=== PATIENT | female | born 1940 | race Two or more races ===

== ENCOUNTER 2022-12-14 15:06 | Inpatient (IN) | payer MEDICARE, BC ==
[~2022-12-14] VITALS: Ht 167.6 cm; Wt 68.1 kg
--- NOTE | 2022-12-14 15:06 | NUR ---
18 g L forearm on arrival
--- NOTE | 2022-12-14 15:06 | NUR ---
BIBA from [facility] c/c blood in stool. A/O x 2-3 per baseline
[2022-12-14] MEDS ORDERED: PANTOPRAZOLE 80 MG in IV NS 0.9% 500 ML IV ONE (15:30)
[2022-12-14] MEDS ORDERED: IV NS 0.9% 1,000 ML BAG IV ONE (15:30)
[2022-12-14] MEDS ORDERED: ONDANSETRON HCL/PF 4 MG/2 ML VIAL IVP ONE (15:30)
--- NOTE | 2022-12-14 15:32 | NUR ---
CALLED [facility] [phone] GUS WILL FAX [facility]
[2022-12-14] MEDS ORDERED: ONDANSETRON HCL/PF 4 MG/2 ML VIAL ONE (15:57)
--- NOTE | 2022-12-14 16:30 | NUR ---
BLOOD SAMPLES OBTAINED
--- NOTE | 2022-12-14 16:30 | NUR ---
URINE SAMPLE OBTAINED
[2022-12-14 16:39] LABS: CALCIUM, SERUM 7.4 mg/dL (8.5-10.1); CARBON DIOXIDE 22 mmol/L (21-32); CHLORIDE 110 mmol/L (98-107); GLUCOSE 172 mg/dL (74-106); POTASSIUM 3.9 mmol/L (3.5-5.1); SODIUM SERUM 140 mmol/L (136-145); UREA NITROGEN, BLOOD 50 mg/dL (7-18)
--- NOTE | 2022-12-14 16:44 | NUR ---
MOVE SHEET SUBMITTED.
--- NOTE | 2022-12-14 17:21 | NUR ---
COVID SWAB OBTAINED
[2022-12-14] MEDS ORDERED: CT SWABBABLE VALVE TRANS SET 1 EA INFUS.SET MC ONE (17:32)
[2022-12-14] MEDS ORDERED: IOHEXOL-300 100 ML VIAL IV ONE (17:32)
[2022-12-14] MEDS ORDERED: IV NS 0.9% 250 ML IV ONE (17:32)
[2022-12-14 18:02] LABS: BILIRUBIN,URINE NEGATIVE (NEGATIVE); COLOR,URINE YELLOW (YELLOW); LEUKOCYTE ESTERASE ,URINE 2+ (NEGATIVE); NITRITE, URINE POSITIVE (NEGATIVE); PROTEIN,URINE 1+ mg/dl (NEGATIVE); UGLUCOSE NEGATIVE (NEGATIVE); UROBILINOGEN,URINE 0.2 EU/dL (0.2)
[2022-12-14 18:27] LABS: BASOPHILS % (AUTO) 0.3 % (0.0-2.0); EOSINOPHILS % (AUTO) 0.8 % (0.0-6.0); LYMPHOCYTES # (AUTO) 0.6 K/uL (0.8-4.8); LYMPHOCYTES % (AUTO) 9.1 % (20.0-44.0); MEAN CORPUSCULAR HGB CONC 32 g/dl (31.0-36.0); MEAN CORPUSCULAR VOLUME 95 fL (82-100); MONOCYTES # (AUTO) 0.4 K/uL (0.1-1.30); MONOCYTES % (AUTO) 5.9 % (2.0-12.0); NEUTROPHILS # (AUTO) 5.8 K/uL (1.8-8.9); NEUTROPHILS % (AUTO) 83.9 % (43.0-81.0); PLATELET COUNT (AUTO) 206 K/uL (150-450); WHITE BLOOD COUNT (AUTO) 6.9 K/uL (4.3-11.0)
[2022-12-14 18:48] LABS: BACTERIA,URINE 4+ /HPF (None Seen); HYALINE CASTS, URINE Few /LPF (None Seen); SQUAMOUS EPITHELIAL CELL,UR Few /HPF (None Seen); WBC,URINE TOO NUMEROUS TO COUN /HPF (0-3)
[2022-12-14 18:58] LABS: HEMATOCRIT 19 % (33-45); HEMOGLOBIN 6.1 g/dL (11.5-14.8)
[2022-12-14] MEDS ORDERED: CEFTRIAXONE 1GM BAG (ER ONLY) 1 GM/50 ML PIGGYBACK IV ONE (19:30)
[2022-12-14 19:36] LABS: ALANINE AMINOTRANSFERASE 9 U/L (12-78); ALBUMIN 2.1 g/dL (3.4-5.0); ALKALINE PHOSPHATASE 90 U/L (46-116); ASPARTATE AMINOTRANSFERASE 10 U/L (15-37); BILIRUBIN,DIRECT 0.1 mg/dL (0.0-0.2); BILIRUBIN,TOTAL 0.3 mg/dL (0.2-1.0); TOTAL PROTEIN, SERUM 5.3 g/dL (6.4-8.2)
--- NOTE | 2022-12-14 19:42 | NUR ---
BLOOD CONSENT SIGNED BY DAUGHTER POA AND PLACED IN PT CHART
[2022-12-14] MEDS ORDERED: CEFTRIAXONE 1GM BAG (ER ONLY) 50 ML IV ONE (19:45)
[2022-12-14 21:07] LABS: BAND % (MANUAL) 3 % (0.0-5.0); LYMPHOCYTES % (MANUAL) 11 % (16-48); MONOCYTES % (MANUAL) 4 % (0-11.0); NEUTROPHILS % (MANUAL) 82 (42-76)
[2022-12-14] MEDS: PANTOPRAZOLE 40 MG VIAL IV SCH (22:00)
[2022-12-14] MEDS ORDERED: ONDANSETRON HCL/PF 4 MG/2 ML VIAL IVP PRN (22:00)
[2022-12-14] MEDS ORDERED: MAG HYDROX/AL HYDROX/SIMETH 30 ML UDC PO PRN (22:00)
[2022-12-14] MEDS ORDERED: HYDROCODONE/APAP 5/325MG TABLET PO PRN (22:00)
[2022-12-14] MEDS ORDERED: Z GUARD REMEDY 4 OZ OINT TP PRN (22:00)
[2022-12-14] MEDS ORDERED: TEMAZEPAM 15 MG CAPSULE PO PRN (22:00)
[2022-12-14] MEDS ORDERED: MAGNESIUM HYDROXIDE 30 ML UDC PO PRN (22:00)
--- NOTE | 2022-12-14 22:15 | NUR ---
BLOOD TRANSFUSION INITIATED AT 120ML/HR. PRETRANSFUSION V/S WNL AND BLOOD VERIFIED BY TWO RNS PRIOR TO ADMIN.
--- NOTE | 2022-12-14 22:30 | NUR ---
NO S/S TRANSFUSION RX, TOLERATING TRANSFUSION WELL. RATE INCREASED TO 160ML/HR.
--- NOTE | 2022-12-14 22:35 | NUR ---
US TECH AT PT'S BEDSIDE
--- NOTE | 2022-12-14 22:40 | NUR ---
REPORT GIVEN TO PERRY
--- NOTE | 2022-12-14 23:33 | NUR ---
PT TRANSFERRING TO 325-1 VIA ACLS PROTOCOL VSS. ALL BELONGINGS WITH PT.
--- NOTE | 2022-12-14 23:40 | NUR ---
SHIP MANAGER ADMITTING NOTES RECEIVED PATIENT AWAKE, A/OX1-2, PATIENT HAVE EPISODES OF CONFUSION AND FORGETFULNESS. PATIENT IS BREATHING EVENLY AND UNLABORED ON ROOM AIR. NO SIGNS OF DISTRESS NOTED. PATIENT DENIES ANY PAIN AND DISCOMFORT AT THE MOMENT. PATIENT IS ON TELE MONITOR. SKIN ASSESSMENT IS DONE. BOWEL SOUND IS ACTIVE IN ALL QUADRANTS. PATIENT HAVE IV ACCESS ON LEFT AND RIGHT ARM IV SITE NOTED TO BE PATENT AND INTACT. PATIENT HAVE AN ONGOING BLOOD TRANSFUSION FROM ER CONSENT IS SIGNED BY DAUGHTER EVAN. PATIENT HAVE NO SIGNS OF ANY ADVERSE REACTION WITH THE TRANSFUSION. PATIENT IS TOLERATING WELL. PATIENT IS HAVING PROTONICS IV INFUSING @52ML/HR. ALL BELONGINGS ARE ACCOUNTED FOR. PATIENT IS ORIENTED TO THE ROOM AND HOW TO USE THE CALL LIGHT WHEN HELP IS NEEDED. SAFETY MEASURES ARE IN PLACED; BED LOCKED AND IN LOWEST POSITION, SIDE RAILS UP X3, CALL LIGHT AND BED SIDE TABLE IS WITHIN PATIENT REACH.
[2022-12-15] VITALS (22 sets, daily range): BP systolic 81–125; BP diastolic 45–81
--- NOTE | 2022-12-15 00:50 | NUR ---
RN NOTES FIRST BAG OF PRBC IS GIVEN. LAST VITAL SIGN CHECK IS; BP 106/66, HR 75, TEMP. 97.7, RESPIRATION 18, O2 SATURATION 97% ON ROOM AIR.
--- NOTE | 2022-12-15 01:16 | NUR ---
RN NOTES PATIENT STARTED ON 2ND BAG OF PRBC AT THIS TIME. PATIENT DO NOT HAVE TRANSFUSION REACTION, NO SOB, NO FEVER, NO CHILLS, NO BACK PAIN, NO HIVES NOTED. VITAL SIGNS CHECKED; BP 114/50, HR 74, O2 SATURATION 99% ROOM AIR, HR 17, TEMP 97.6.
--- NOTE | 2022-12-15 01:34 | NUR ---
RN NOTES REASSESSED PATIENT. PATIENT DO NOT HAVE TRANSFUSION REACTION, NO SOB, NO FEVER, NO CHILLS, NO BACK PAIN, NO HIVES NOTED. VITAL SIGNS BP 94/50, HR 78, RESPIRATIONS 19, TEMP 97.8, O2 SATURATION 98% ON ROOM AIR.
--- NOTE | 2022-12-15 04:55 | NUR ---
RN NOTES PATIENT IS DONE TRANSFUSING THE 2ND BAG OF PRBC. PATIENT TOLERATED WELL, NO SIGNS OF TRANSFUSION REACTION. NO COMPLAINS OF DIZZINESS, BACK PAIN, NO FEVER, NO CHILLS NOTED. VITAL SIGNS TAKEN; BP 113/56, HR 70, O2 SATURATION 99% ROOM AIR, RESPIRATION 18, TEMP 97.6.
--- NOTE | 2022-12-15 07:10 | NUR ---
RN CLOSING NOTES PATIENT IN BED AWAKE, A/OX 1-2, ABLE TO MAKE NEEDS KNOWN, EPISODES OF CONFUSION AND FORGETFULNESS, NOT IN DISTRESS, BREATHING EVENLY, NO SOB, ON TELE MONITOR SINUS RHYTHM, IV SITE ON LEFT HAND SALINE LOCK PATENT, INTACT FLUSHING WELL, RIGHT HAND IV SITE NS INFUSING 75ML/HR PATENT INFUSING WELL. ON ROOM AIR TOLERATING WELL. ALL DUE MEDICATIONS GIVEN, ALL NEEDS ARE MET. SAFETY MEASURES IN PLACED; BED LOCKED AND IN LOWEST POSITION, CALL LIGHT AND BEDSIDE TABLE WITHIN PATIENTS REACH. WILL ENDORSE TO NEXT SHIFT FOR CONTINUITY OF CARE.
--- NOTE | 2022-12-15 07:56 | NUR ---
HYDRAULIC RUBBISH COMPACTOR MECHANIC OPENING NOTES: RECEIVED PATIENT AWAKE,RESTING IN BED, A/OX 1-2, ABLE TO MAKE NEEDS KNOWN, EPISODES OF CONFUSION AND FORGETFULNESS. ON RA WITH NO S/S OF SOB. TELE MONITOR READS SR, HR= 75. IV ACCESS ON L HAND #20 AND R HAND #20, BOTH SALINE LOCK, PATENT AND INTACT. IV FLUID ON PAUSE AT THE MOMENT PER PT REQUEST. SAFETY MEASURES IN PLACED; BED LOCKED AND IN LOWEST POSITION, CALL LIGHT AND TABLE WITHIN PATIENTS REACH, WILL CONT WITH PLAN OF CARE DURING SHIFT.
[2022-12-15] MEDS ORDERED: MAGN400O6 PO (08:14)
[2022-12-15] MEDS ORDERED: GABA-532 PO (08:14)
[2022-12-15] MEDS ORDERED: ACET-868 PO (08:14)
[2022-12-15] MEDS ORDERED: ALEN70TA80 PO (08:14)
[2022-12-15] MEDS ORDERED: ACET-2605 PO (08:14)
[2022-12-15] MEDS ORDERED: NA P133E RC (08:14)
[2022-12-15] MEDS ORDERED: NAPR-1009 PO (08:14)
[2022-12-15] MEDS: PANTOPRAZOLE 40 MG VIAL IV SCH ×2 (09:08→21:17)
--- NOTE | 2022-12-15 09:30 | NUR ---
RN NOTES; GAS PUMPING STATION HELPER HEARD BED ALARM, WENT TO PT'S ROOM, WITNESSED PT TRYING TO GET OUT OF BED. GAS PUMPING STATION HELPER ASSISTED PT WITH LANDING ON LEFT BUTTOCKS. RN CAME TO PT'S ROOM, ASSESSED PT FOR REDNESS, SWELLING, AND PAIN ON LEFT BUTTOCKS, NO ISSUES IDENTIFIED. PT REORIENTED TO UNIT AND STAFF, ADVISED TO USE CALL LIGHT IF PT NEEDS TO USE BATHROOM OR AMBULATE, PT VERBALIZED UNDERSTANDING. FALL PRECAUTIONS REINFORCED, BED LOCKED AT LOWEST POSITION, ALARM ON, SIDERAILS UP X4, CALL LIGHT AND TABLE WITHIN EASY REACH. PT ROOM IS NEAR NURSING STATION, RN STATIONED INSIDE/NEAR PT'S ROOM FOR CLOSE MONITORING, WILL CONT TO REASSESS EVERY 2 HOURS, MADE SCUBA DIVING INSTRUCTOR AWARE. INCIDENT REPORT FILLED OUT.
[2022-12-15 11:05] LABS: BASOPHILS % (AUTO) 0.5 % (0.0-2.0); EOSINOPHILS % (AUTO) 1.4 % (0.0-6.0); HEMATOCRIT 22 % (33-45); HEMOGLOBIN 7.5 g/dL (11.5-14.8); LYMPHOCYTES # (AUTO) 0.8 K/uL (0.8-4.8); LYMPHOCYTES % (AUTO) 16.8 % (20.0-44.0); MEAN CORPUSCULAR HGB CONC 34 g/dl (31.0-36.0); MEAN CORPUSCULAR VOLUME 89 fL (82-100); MONOCYTES # (AUTO) 0.3 K/uL (0.1-1.30); MONOCYTES % (AUTO) 6.3 % (2.0-12.0); NEUTROPHILS # (AUTO) 3.5 K/uL (1.8-8.9); PLATELET COUNT (AUTO) 198 K/uL (150-450); RED BLOOD CELL COUNT(AUTO) 2.46 MIL/uL (4.0-5.2); WHITE BLOOD COUNT (AUTO) 4.6 K/uL (4.3-11.0)
[2022-12-15 11:19] LABS: CREATININE 0.7 mg/dL (0.6-1.3); PHOSPHORUS 2.4 mg/dL (2.5-4.9); POTASSIUM 3.7 mmol/L (3.5-5.1)
[2022-12-15 11:31] LABS: THYROID STIMULATING HORMONE 1.279 uIU/mL (0.358-3.74)
[2022-12-15 11:35] LABS: FERRITIN 63 ng/mL (8-388)
[2022-12-15 11:40] LABS: IRON, SERUM 87 ug/dl (50-175); TOTAL IRON BINDING CAPACITY 176 ug/dl (250-450)
[2022-12-15] MEDS: ACETAMINOPHEN 325 MG TABLET PO PRN ×2 (11:55→11:59)
--- NOTE | 2022-12-15 15:30 | NUR ---
RN NOTES; PT HAD LARGE AMOUNT OF BLACK TARRY STOOL, SAMPLE COLLECTED, MADE SUPPORT DIRECTOR AND HOSPITALIST AWARE, STAT CBC ORDERED; BOLUS IV FLUIDS ORDERED, WILL CONT TO MONITOR AND REASSESS VS
[2022-12-15] MEDS: K PHOS NEUTRAL 250 MG TABLET PO ONE ×2 (16:00→16:10)
--- NOTE | 2022-12-15 16:00 | NUR ---
RN NOTES: PT REFUSED KPHOS TABS, RN EXPLAINED RATIONALE OF MED, PT STILL REFUSED, DISCARDED PER UNIT PROTOCOL
[2022-12-15] MEDS ORDERED: IV NS 0.9% 500 ML BAG IV ONE (16:30)
[2022-12-15 16:59] LABS: BASOPHILS # (AUTO) 0.1 K/uL (0.0-0.2); EOSINOPHILS % (AUTO) 0.7 % (0.0-6.0); NEUTROPHILS # (AUTO) 6.6 K/uL (1.8-8.9); WHITE BLOOD COUNT (AUTO) 8.4 K/uL (4.3-11.0)
[2022-12-15 17:11] LABS: OCCULT BLOOD STOOL POSITIVE (NEGATIVE)
[2022-12-15 17:14] LABS: BASOPHILS % (AUTO) 0.9 % (0.0-2.0); LYMPHOCYTES # (AUTO) 1.2 K/uL (0.8-4.8); LYMPHOCYTES % (AUTO) 14.6 % (20.0-44.0); MEAN CORPUSCULAR HGB CONC 34 g/dl (31.0-36.0); MEAN CORPUSCULAR VOLUME 91 fL (82-100); MONOCYTES # (AUTO) 0.4 K/uL (0.1-1.30); MONOCYTES % (AUTO) 5.1 % (2.0-12.0); NEUTROPHILS % (AUTO) 78.7 % (43.0-81.0); PLATELET COUNT (AUTO) 300 K/uL (150-450); RED BLOOD CELL COUNT(AUTO) 2.23 MIL/uL (4.0-5.2)
[2022-12-15 17:18] LABS: HEMATOCRIT 20 % (33-45); HEMOGLOBIN 6.8 g/dL (11.5-14.8)
--- NOTE | 2022-12-15 18:30 | NUR ---
RN NOTES: BLOOD TRANSFUSION STARTED, VITALS DOCUMENTED, WILL MONITOR PATIENT PER UNIT PROTOCOL
[2022-12-15 18:41] LABS: BAND % (MANUAL) 2 % (0.0-5.0); EOSINOPHILS % (MANUAL) 2 % (0-4); LYMPHOCYTES % (MANUAL) 12 % (16-48); MONOCYTES % (MANUAL) 4 % (0-11.0); NEUTROPHILS % (MANUAL) 80 (42-76)
--- NOTE | 2022-12-15 19:38 | NUR ---
FUNERAL PRE ARRANGEMENT SPECIALIST NOTES: PT TRANSFERRED TO ICU FROM MED-SURG UNIT WITH ACLS PROTOCOL, PLACED IN ROOM 257. BED SIDE REPORT RECEIVED FROM SHAKIR STALLINGS. PT AWAKE, ALERT/ORIENTED X1-2 WITH CONFUSION AND VERBALLY RESPONSIVE. ON ROOM AIR AND PT TOLERATED WELL. O2 SAT 96%. IV ACCESS ON LT FOREARM#18 G INTACT AND PATENT. NO S/S OF INFILTRATIONS. RUNNING 1 UNITS OF PRBC AT 120CC/HR. NO C/O PAIN OR DISCOMFORT. NO ACUTE DISTRESS. INCONTINENT ON BOWEL AND BLADDER. ALL SAFETY MEASURES IN PLACE. BED IN LOWEST POSITION AND LOCKED. SIDE RAILS UP X3, PLACE CALL LIGHT WITH IN REACH. WILL CONTINUE TO MONITOR
--- NOTE | 2022-12-15 20:00 | NUR ---
TROLLEY COLLECTORMEAT BUTCHER NOTES: PT TRANSFERRED TO ICU VIA GURNEY WITH ANOTHER RN. PT IS AWAKE, A/O X2. ON RA WITH NO S/S OF SOB. TELE MONITOR READS SR 78. IV ACCESS AT L AC# 20 RUNNING 1 UNIT OF PRBC. ALL SAFETY MEASURES IN PLACE, REPORT GIVEN AT BEDSIDE TO BROTH MIXER
--- NOTE | 2022-12-15 20:10 | NUR ---
RN NOTES: PT KEPT TRYING TO GET UP FROM THE BED. STILL BLOOD TRANSFUSION RUNNING. NOTIFIED DR. BUENROSTRO WITH ORDER FOR BILATERAL SOFT RESTRAINTS. WILL CONTINUE TO MONITOR
--- NOTE | 2022-12-15 20:31 | NUR ---
RN NOTES: RN CALLED DAUGHTER EVAN, GAVE UPDATES ABOUT PT CONDITION, INFORMED SHE WAS TRANSFERRED TO ICU, ROOM # 257, EVAN VERBALIZED UNDERSTANDING TO EVERYTHING DISCUSSED.
--- NOTE | 2022-12-15 22:23 | NUR ---
RN NOTES: COMPLETED FIRST UNIT OF BLOOD TRANSFUSION. NO S/S OF ADVERSE REACTIONS. SECOND UNIT OF PRBC STARTED. PT TOLERATED WELL. V/S STABLE. AFEBRILE.WILL CONTINUE TO MONITOR
[2022-12-15] MEDS: CEFTRIAXONE 1 G in IV D5W 50 ML IV SCH (22:50)
[2022-12-15] MEDS: IV NS 0.9% 1,000 ML IV PRN (22:51)
[2022-12-16] VITALS (69 sets, daily range): BP systolic 75–144; BP diastolic 40–88
--- NOTE | 2022-12-16 01:30 | NUR ---
RN NOTES: NOTED PT SUDDENLY BECAME LETHARGIC. MADE AWARE DR. BUENROSTRO. ORDER- STAT ABG AND APPLIED NON-REBREATHER MASK 15L. WILL CONTINUE TO MONITOR
--- NOTE | 2022-12-16 01:50 | NUR ---
RN NOTES: NOTIFIED DR. CASTANEDA THE ABG RESULT. ORDER TO KEEP PT WITH NASAL CANNULA. STARTED 2L/MIN VIA N/C. ALSO NOTIFIED REGARDING PT'S BP- 74/45. HR- 87. STARTED BOLUS 500CC NS. PT ALREADY HAVE BURGUNDY COLOR BOWEL MOVEMENT. ORDER- LEVOPHED AND KEEP THE MAP MORE THAN 65. ORDERS NOTED AND CARRIED OUT.
[2022-12-16] MEDS ORDERED: NOREPINEPHRINE 8MG/250ML RTU 250 ML IV ONE (01:52)
[2022-12-16] MEDS ORDERED: IV NS 0.9% 500 ML IV ONE (02:00)
[2022-12-16] MEDS ORDERED: NOREPINEPHRINE 8 MG in IV NS 0.9% 242 ML IV PRN (02:00)
--- NOTE | 2022-12-16 02:14 | NUR ---
RN NOTES: SECOND UNITS OF PRBC COMPLETED. PT AFEBRILE. NO ADVERSE REACTIONS NOTED. BP- 87/42. HR- 88. COMPLETED NS 500 ML BOLUS. ON LEVOPHED AT 0.1MCG/KG/MIN. PT TOLERATED WELL. WILL CONTINUE TO MONITOR
[2022-12-16 05:19] LABS: BASOPHILS # (AUTO) 0.1 K/uL (0.0-0.2); BASOPHILS % (AUTO) 0.6 % (0.0-2.0); EOSINOPHILS % (AUTO) 0.2 % (0.0-6.0); HEMATOCRIT 26 % (33-45); HEMOGLOBIN 8.1 g/dL (11.5-14.8); LYMPHOCYTES # (AUTO) 1.4 K/uL (0.8-4.8); LYMPHOCYTES % (AUTO) 7.1 % (20.0-44.0); MEAN CORPUSCULAR HGB CONC 31 g/dl (31.0-36.0); MEAN CORPUSCULAR VOLUME 99 fL (82-100); MONOCYTES # (AUTO) 0.8 K/uL (0.1-1.30); MONOCYTES % (AUTO) 4.2 % (2.0-12.0); NEUTROPHILS # (AUTO) 17.1 K/uL (1.8-8.9); NEUTROPHILS % (AUTO) 87.9 % (43.0-81.0); PLATELET COUNT (AUTO) 308 K/uL (150-450); RED BLOOD CELL COUNT(AUTO) 2.63 MIL/uL (4.0-5.2); WHITE BLOOD COUNT (AUTO) 19.4 K/uL (4.3-11.0)
[2022-12-16 05:38] LABS: CALCIUM, SERUM 7.4 mg/dL (8.5-10.1); CREATININE 0.9 mg/dL (0.6-1.3); POTASSIUM 4.1 mmol/L (3.5-5.1)
--- NOTE | 2022-12-16 06:40 | NUR ---
RN CLOSING NOTES: RECEIVED PT IN BED, AWAKE, ALERT/ORIENTED X1-2 WITH VERY CONFUSION AND VERBALLY RESPONSIVE. ON ROOM AIR AND PT TOLERATED WELL. O2 SAT 98%. IV ACCESS ON LT FOREARM#18G AND RAC#20G INTACT AND PATENT. NO S/S OF INFILTRATIONS. RUNNING LEVOPHED AT 0.08 MCG/KG/MIN AND NS AT 75CC/HR. S/P GIVEN 2 UNITS PRBC. NO C/O PAIN OR DISCOMFORT. NO ACUTE DISTRESS. INCONTINENT ON BOWEL AND BLADDER. ALL DUE MEDS GIVEN ORDERED. ALL SAFETY MEASURES IN PLACE. BED IN LOWEST POSITION AND LOCKED. SIDE RAILS UP X3, PLACE CALL LIGHT WITH IN REACH. WILL ENDORSE TO MORNING SHIFT NURSE.
--- NOTE | 2022-12-16 07:00 | NUR ---
RN NOTES RECEIVED PT ON BED, ALERT/ CONFUSED , TRYING TO GET OUT OF THE BED, UNCOOPERATIVE , ON 2L O2 N/C , O2 SAT WNL, ON TELE ST HR IN 110, NPO FOR EGD THIS AM , ON LEVO FOR BP SUPPORT, IVF AT 75CC/HR RUNNING , SR UP x3, BED LOCKED AND IN LOWEST POSITION, CONTINUE TO MONITOR
[2022-12-16 07:17] LABS: ABG BASE EXCESS -9.2 mmol/L; ABG OXYGEN SATURATION 98.8 % (92.0-98.5); ABG PCO2 19.4 mmHg (35.0-45.0); ABG PH 7.453 (7.350-7.450); ABG PO2 265.8 mmHg (75.0-100.0); AaDO2 427.8 mmHg; COHb 0.4 % (0.5-1.5); MetHb 0.4 % (0.0-1.5); SITE, ABG Right Brachial; VENT MODE, BG 15LPM NRB
--- NOTE | 2022-12-16 07:31 | NUR ---
WOUND CARE CONSULT: PT PRESENTS WITH RECTAL BLEEDING, SOME BLANCHABLE REDNESS TO SACRAL/BUTTOCKS AREA AND RT ELBOW SKIN TEAR, PRESENT ON ADMISSION. RECOMMENDATIONS MADE FOR SKIN PROTECTION. DISCUSSED WITH NURSING STAFF.MD IN AGREEMENT WITH PLAN OF CARE.
[2022-12-16] MEDS ORDERED: ANESTHESIA TRAY IN PYXIS 1 EA TRAY MC ONE (08:00)
[2022-12-16] MEDS: PANTOPRAZOLE 40 MG VIAL IV SCH ×2 (08:11→21:09)
--- NOTE | 2022-12-16 08:55 | NUR ---
RN NOTES PT TO OR AT THIS TIME FOR ENDOSCOPY .
--- NOTE | 2022-12-16 09:33 | NUR ---
RN NOTES PT BACK FROM OR
[2022-12-16] MEDS ORDERED: PANTOPRAZOLE 80 MG in IV NS 0.9% 500 ML IV ONE (11:00)
[2022-12-16] MEDS ORDERED: ACETAMINOPHEN ES 500 MG TABLET PO PRN (13:30)
[2022-12-16] MEDS ORDERED: MAGNESIUM HYDROXIDE 30 ML UDC PO PRN (13:30)
[2022-12-16] MEDS ORDERED: ACETAMINOPHEN 325 MG TABLET PO PRN (13:30)
[2022-12-16] MEDS ORDERED: NA PHOS,M-B/NA PHOS,DI-BA 1 EA ENEMA RC PRN (13:30)
--- NOTE | 2022-12-16 14:00 | NUR ---
RN NOTES BP STABLE, NO RECTAL BLEEDING NOTED, CONTINUE TO MONITOR
[2022-12-16] MEDS: IV NS 0.9% 1,000 ML IV PRN (14:32)
[2022-12-16] MEDS: GABAPENTIN 100 MG CAPSULE PO SCH (16:46)
--- NOTE | 2022-12-16 18:15 | NUR ---
RN NOTES PT REMAINS CONFUSED , OFF PRESSORS, NO ACTIVE BLEEDING NOTED, ON PROTONIX DRIP AT 50CC/HR , NO DISTESS NOTED, WILL ENDORSE TO BEHAVIORAL HEALTH CARE COORDINATOR NURSE FOR CONTINUITY OF CARE
--- NOTE | 2022-12-16 19:30 | NUR ---
BIOLOGY LABORATORY ASSISTANT OPENING NOTES RECEIVED PT IN BED, AWAKE, ALERT/ORIENTED X1-2 CONFUSED AND VERBALLY RESPONSIVE. ON ROOM AIR AND PT TOLERATED WELL. O2 SAT 98%. IV ACCESS ON NEGRA ML, LT FOREARM#18G AND RAC#20G INTACT AND PATENT. NO S/S OF INFILTRATIONS, RUNNING NS AT 75CC/HR. NO C/O PAIN OR DISCOMFORT. NO ACUTE DISTRESS. INCONTINENT ON BOWEL AND BLADDER. WITH B SOFT WRIST RESTRAINTS ON, CIRCULATION CHECKED Q2H, ALL SAFETY MEASURES IN PLACE. BED IN LOWEST POSITION AND LOCKED. SIDE RAILS UP X3, PLACE CALL LIGHT WITH IN REACH. WILL CONTINUE TO MONITOR THROUGHOUT THE SHIFT.
[2022-12-16] MEDS: CEFTRIAXONE 1 G in IV D5W 50 ML IV SCH (21:09)
[2022-12-17] VITALS (45 sets, daily range): BP systolic 102–162; BP diastolic 37–91
[2022-12-17] MEDS: IV NS 0.9% 1,000 ML IV PRN ×2 (02:46→22:46)
[2022-12-17 04:34] LABS: CALCIUM, SERUM 7.4 mg/dL (8.5-10.1); CREATININE 0.8 mg/dL (0.6-1.3); POTASSIUM 3.4 mmol/L (3.5-5.1)
[2022-12-17 04:53] LABS: BASOPHILS % (AUTO) 0.8 % (0.0-2.0); EOSINOPHILS % (AUTO) 2.3 % (0.0-6.0); MEAN CORPUSCULAR HGB CONC 33 g/dl (31.0-36.0); MEAN CORPUSCULAR VOLUME 95 fL (82-100); MONOCYTES # (AUTO) 0.4 K/uL (0.1-1.30); MONOCYTES % (AUTO) 7.5 % (2.0-12.0); NEUTROPHILS # (AUTO) 4.2 K/uL (1.8-8.9); NEUTROPHILS % (AUTO) 71.4 % (43.0-81.0); PLATELET COUNT (AUTO) 180 K/uL (150-450); WHITE BLOOD COUNT (AUTO) 5.8 K/uL (4.3-11.0)
[2022-12-17 04:56] LABS: RED BLOOD CELL COUNT(AUTO) 1.68 MIL/uL (4.0-5.2)
[2022-12-17 04:57] LABS: HEMATOCRIT 16 % (33-45); HEMOGLOBIN 5.3 g/dL (11.5-14.8)
--- NOTE | 2022-12-17 05:02 | NUR ---
RN NOTE CRITICAL LAB H&H 5.12/26. NOTIFIED DETECTOR CAR OPERATOR MD, AWAITING RESPONSE. CN MADE AWARE.
--- NOTE | 2022-12-17 05:15 | NUR ---
RN NOTE BIOMEDICAL EQUIPMENT TECHNICIAN TY ORDERED 1 PRBC FOR HGB <7
--- NOTE | 2022-12-17 06:40 | NUR ---
GAMEMASTER CLOSING NOTES PT REMAINS IN BED ASLEEP BUT EASILY AROUSABLE TO TOUCH AND VOICE, ALERT/ORIENTED X1-2 WITH PERIODS OF CONFUSION AND VERBALLY RESPONSIVE. ON ROOM AIR AND PT TOLERATED WELL. O2 SAT 98%. IV ACCESS ON NEGRA ML, LT FOREARM#18G AND RAC#20G INTACT AND PATENT. NO S/S OF INFILTRATIONS, RUNNING NS AT 75CC/HR. NO C/O PAIN OR DISCOMFORT. NO ACUTE DISTRESS. INCONTINENT ON BOWEL AND BLADDER. WITH B SOFT WRIST RESTRAINTS ON, CIRCULATION CHECKED Q2H, ALL DUE MEDS GIVEN, KEPT DRY AND CLEAN, ALL SAFETY MEASURES IN PLACE. BED IN LOWEST POSITION AND LOCKED. SIDE RAILS UP X3, PLACE CALL LIGHT WITH IN REACH. AWAITING BLOODBANK TO TRANSFUSE 1 PRBC, WILL ENDORSE TO AM SHIFT NURSE FOR CONTINUITY OF CARE.
--- NOTE | 2022-12-17 07:09 | NUR ---
RN NOTES RECEIVED PT ON BED, AWAKE, ALERT/ORIENTED X1-2 CONFUSED AND VERBALLY RESPONSIVE. ON ROOM O2 SAT IV ACCESS ON NEGRA ML, LT FOREARM#18G AND RAC#20G INTACT AND PATENT. NO S/S OF INFILTRATIONS, NS AT 75CC/HR RUNNING , AWAITING FOR BLOOD TRANSFUSION, NO C/O PAIN OR DISCOMFORT. NO ACUTE DISTRESS. INCONTINENT ON BOWEL AND BLADDER. WITH RENNY. SOFT WRIST RESTRAINTS ON, CIRCULATION CHECKED Q2H, ALL SAFETY MEASURES IN PLACE. BED IN LOWEST POSITION AND LOCKED. SIDE RAILS UP X3, PLACE CALL LIGHT WITH IN REACH. WILL CONTINUE TO MONITOR .
[2022-12-17] MEDS ORDERED: ALENDRONATE 70 MG TABLET PO SCH (07:30)
[2022-12-17] MEDS: POTASSIUM CL. PREMIX PERIPHER. 50 ML IV SCH ×2 (07:52→09:00)
[2022-12-17] MEDS: PANTOPRAZOLE 40 MG VIAL IV SCH ×2 (08:28→21:02)
[2022-12-17] MEDS: GABAPENTIN 100 MG CAPSULE PO SCH ×2 (08:28→16:28)
[2022-12-17 09:48] LABS: BAND % (MANUAL) 1 % (0.0-5.0); EOSINOPHILS % (MANUAL) 1 % (0-4); LYMPHOCYTES % (MANUAL) 23 % (16-48); MONOCYTES % (MANUAL) 3 % (0-11.0); NEUTROPHILS % (MANUAL) 72 (42-76)
--- NOTE | 2022-12-17 12:45 | NUR ---
RN NOTES PT TO NM AT THIS TIME , CONTINUE TO MONITOR
--- NOTE | 2022-12-17 15:00 | NUR ---
RN NOTES PT RECEIVED TWO UNITS OF PRBC , TOLERATED WELL, CONTINUE TO MONITOR
--- NOTE | 2022-12-17 18:14 | NUR ---
RN NOTES PT HAD THREE LOOSE DARK TO LIGHT BROWNISH STOOL WITH SOME BLOOD CLOTS , ON THIS SHIFT, ON RA, NO SOB NOTED, NS AT 75CC/HR RUNNING , SR UP x3, CALL LIGHT WITHIN EASY REACH, BED LOCKED AND IN LOWEST POSITION, WILL ENDORSE TO ELECTRONICS WORKER NURSE FOR CONTINUITY OF CARE .
[2022-12-17 19:50] LABS: HEMOGLOBIN 8.7 g/dL (11.5-14.8)
--- NOTE | 2022-12-17 20:00 | NUR ---
Received patient awake alert oriented x1 otherwise confused.VS stable.SR.Respiration even and unlabored.Denies pain or any discomfort.Patient with IV NS infusing to NEGRA ML site intact. Turned and repositioned.Safety precaution maintained.Call light at bedside.Continue monitoring.
[2022-12-17] MEDS: CEFTRIAXONE 1 G in IV D5W 50 ML IV SCH (21:40)
[2022-12-18] VITALS (20 sets, daily range): BP systolic 109–153; BP diastolic 55–82
--- NOTE | 2022-12-18 | NUR ---
Patient very confused trying to get out of bed.Bilateral soft wrist restraints continued.Protocol implemented.
[2022-12-18 05:22] LABS: BASOPHILS # (AUTO) 0.1 K/uL (0.0-0.2); BASOPHILS % (AUTO) 0.9 % (0.0-2.0); EOSINOPHILS % (AUTO) 4.3 % (0.0-6.0); HEMATOCRIT 23 % (33-45); HEMOGLOBIN 7.9 g/dL (11.5-14.8); LYMPHOCYTES % (AUTO) 13.6 % (20.0-44.0); MEAN CORPUSCULAR HGB CONC 34 g/dl (31.0-36.0); MEAN CORPUSCULAR VOLUME 90 fL (82-100); MONOCYTES # (AUTO) 0.4 K/uL (0.1-1.30); MONOCYTES % (AUTO) 5.9 % (2.0-12.0); NEUTROPHILS # (AUTO) 5.3 K/uL (1.8-8.9); NEUTROPHILS % (AUTO) 75.3 % (43.0-81.0); PLATELET COUNT (AUTO) 192 K/uL (150-450); RED BLOOD CELL COUNT(AUTO) 2.61 MIL/uL (4.0-5.2); WHITE BLOOD COUNT (AUTO) 7.1 K/uL (4.3-11.0)
[2022-12-18 05:43] LABS: ALANINE AMINOTRANSFERASE 9 U/L (12-78); ALBUMIN 1.9 g/dL (3.4-5.0); ALKALINE PHOSPHATASE 74 U/L (46-116); ASPARTATE AMINOTRANSFERASE 15 U/L (15-37); BILIRUBIN,TOTAL 0.8 mg/dL (0.2-1.0); CALCIUM, SERUM 7.4 mg/dL (8.5-10.1); CARBON DIOXIDE 23 mmol/L (21-32); CHLORIDE 114 mmol/L (98-107); CREATININE 0.6 mg/dL (0.6-1.3); GLUCOSE 85 mg/dL (74-106); MAGNESIUM 1.7 mg/dL (1.8-2.4); PHOSPHORUS 2.3 mg/dL (2.5-4.9); POTASSIUM 3.2 mmol/L (3.5-5.1); SODIUM SERUM 142 mmol/L (136-145); TOTAL PROTEIN, SERUM 4.4 g/dL (6.4-8.2); UREA NITROGEN, BLOOD 19 mg/dL (7-18)
--- NOTE | 2022-12-18 06:50 | NUR ---
Patient remains very confused trying get out of bed and hallucinating.AM care done. Turned and repositioned to comfort.Safety precaution maintained.Call light at bedside. Bed Alarm on.Incontinent of stool with blood stain X1.Incontinent of urine.Kept clean and dry.Continue monitoring.Will endorse to day shift for ESPINOZA.
[2022-12-18] MEDS ORDERED: ALENDRONATE 70 MG TABLET PO SCH (07:30)
[2022-12-18] MEDS: Magnesium 1GM/D5W 100ML PREMIX 100 ML IV SCH ×2 (08:23→09:26)
[2022-12-18] MEDS: PANTOPRAZOLE 40 MG VIAL IV SCH ×2 (08:24→21:33)
[2022-12-18] MEDS: GABAPENTIN 100 MG CAPSULE PO SCH ×2 (08:24→16:16)
[2022-12-18] MEDS: POTASSIUM CHLORIDE 20 MEQ TAB.PRT.SR PO SCH ×3 (08:25→10:18)
[2022-12-18] MEDS: NEUTRA PHOS 1 POWD.PACKET PO SCH ×2 (08:25→15:56)
[2022-12-18 08:48] LABS: BASOPHILS % (MANUAL) 0 % (0.0-2.0); EOSINOPHILS % (MANUAL) 0 % (0-4); LYMPHOCYTES % (MANUAL) 19 % (16-48); MONOCYTES % (MANUAL) 4 % (0-11.0); NEUTROPHILS % (MANUAL) 77 (42-76)
--- NOTE | 2022-12-18 13:50 | NUR ---
TRANSFERRED TO [place] [id number] BED 1 PER ORDER/PROTOCOL, BEDSIDE REPORT GIVEN TO LYDIA-HAYLIE, PATIENT VS STABLE, NO SSX OF ACUTE DISTRESS NOTED. ENDORSED FOR CONTINUITY OF CARE. NO BELONGINGS NOTED.
--- NOTE | 2022-12-18 14:03 | NUR ---
MENTAL RETARDATION AIDE NOTES RECEIVED PT FROM LONG WALL MINING MACHINE TENDER EDMUND VIA BED, PT IS AWAKE, ALERT AND VERBALLY RESPONSIVE, NOT IN DISTRESS, ON ROOM AIR, DENIES PAIN OR ANY DISCOMFORT, ROOM SET UP ORIENTATION PROVIDED, VERBALIZED UNDERSTANDING, KEPT PT COMFORTABLE.
[2022-12-18] MEDS: IV NS 0.9% 1,000 ML IV PRN (14:29)
--- NOTE | 2022-12-18 18:18 | NUR ---
HUMAN RESOURCE INTERNSHIP NOTES PT IN BED, AWAKE, ALERT TO SELF, WITH CONFUSION, NO COMPLAINT OF PAIN, RESPIRATIONS NORMAL, PM CARE PROVIDED, IV FLUIDS INFUSING WELL, DUE MEDS GIVEN ORDERED, ASSISTED WITH MEALS, ALL NEEDS ATTENDED.
--- NOTE | 2022-12-18 19:10 | NUR ---
CLERK OF COURT OPENING NOTE PATIENT IS SLEEPING IN BED, EASILY BEING AROUSED. SHE IS ALERT, AO X 1. SHE ONLY KNOWS HER NAME. SHE IS ON RA, TOLERATED WELL; NO S/S OF DISTRESS OR SOB. IV ACCESS IS AT HER L UA, #18G, ML; RUNNING NS @40 ML / HR. ANOTHER IV ACCESS IS AT HER R AC, #20G, SL. IV SITE IS PATENT AND INTACT. THE INNER SIDE OF HER L FA HAS LARGE AREA OF BRUISING, PICTURE IS TAKEN AND PUT IN HER CHART. PT IS ON EXTERNAL MONITOR, ON THE MONITOR, HER HEART RHYTHM IS SR WITH PVCS, AND HR IS AT 70s. PT IS ON SOFT WRIST RESTRAINS BILATERAL, CHECKED THE CIRCULATION ON HER WRISTS, ARMS AND HANDS, WNL. SAFETY MEASURES ARE IN PLACE: BED IN LOWEST AND LOCKED POSITION; SIDE RAILS UP X 2; CALL LIGHT AND TABLE ARE WITHIN EASY REACH. WILL MONITOR THE PT CLOSELY AND PROVIDE THE CARE PT NEEDS.
--- NOTE | 2022-12-18 20:00 | NUR ---
CHILDRENS CLUB ATTENDANT NOTE ACCESSED PT'S BRUISING ON HER L FA, IT IS SOFT AND WARM. WHEN TOUCHING THE SITE, PT DENIES OF HAVING PAIN. ASKED THE CHARGE NURSEELVIN TO CHECK THE BRUISING TO R/O IV INFILTRATION OR THROMBOPHLEBITIS.
[2022-12-18 20:01] LABS: HEMOGLOBIN 9.2 g/dL (11.5-14.8)
[2022-12-18] MEDS: CEFTRIAXONE 1 G in IV D5W 50 ML IV SCH (21:33)
[2022-12-19] VITALS: BP 115/68
[2022-12-19 04:00] VITALS: BP 111/56
--- NOTE | 2022-12-19 06:40 | NUR ---
ADVERTISING COORDINATOR CLOSING NOTE PATIENT IS SLEEPING IN BED, EASILY BEING AROUSED. SHE IS ALERT, AO X 1. SHE ONLY KNOWS HER NAME. SHE IS ON RA, TOLERATED WELL; NO S/S OF DISTRESS OR SOB. IV ACCESS IS AT HER L UA, #18G, ML; RUNNING NS @40 ML / HR. ANOTHER IV ACCESS IS AT HER R AC, #20G, SL. IV SITE IS PATENT AND INTACT. PT IS ON EXTERNAL MONITOR, ON THE MONITOR, HER HEART RHYTHM IS SR WITH PVCS, AND HR IS AT 70s. PT IS ON SOFT WRIST RESTRAINS BILATERAL, HAS BEEN CHECKED THE CIRCULATION ON HER WRISTS, ARMS AND HANDS Q 15 MINS THROUGHOUT THE SHIFT; WNL. SAFETY MEASURES ARE IN PLACE: BED IN LOWEST AND LOCKED POSITION; SIDE RAILS UP X 2; CALL LIGHT AND TABLE ARE WITHIN EASY REACH. WILL ENDORSE NEXT SHIFT NURSE FOR CONTINUING PT CARE.
--- NOTE | 2022-12-19 07:25 | NUR ---
ms rn received on bed,oriented x1,confuse, patient on room air w/ adequate saturation,no sob noted, lungs clear,abdomen soft,positive bowel sounds,denies pain at this time, bilateral arms restrain, circulations checked,repositioned for comfort,all needs attended.
[2022-12-19 08:13] LABS: BASOPHILS # (AUTO) 0.1 K/uL (0.0-0.2); BASOPHILS % (AUTO) 0.8 % (0.0-2.0); HEMATOCRIT 28 % (33-45); HEMOGLOBIN 9.2 g/dL (11.5-14.8); LYMPHOCYTES # (AUTO) 1.2 K/uL (0.8-4.8); LYMPHOCYTES % (AUTO) 17.1 % (20.0-44.0); MEAN CORPUSCULAR HGB CONC 33 g/dl (31.0-36.0); MEAN CORPUSCULAR VOLUME 92 fL (82-100); MONOCYTES # (AUTO) 0.4 K/uL (0.1-1.30); MONOCYTES % (AUTO) 5.9 % (2.0-12.0); NEUTROPHILS # (AUTO) 5.1 K/uL (1.8-8.9); NEUTROPHILS % (AUTO) 72.2 % (43.0-81.0); PLATELET COUNT (AUTO) 260 K/uL (150-450); RED BLOOD CELL COUNT(AUTO) 3.03 MIL/uL (4.0-5.2)
[2022-12-19 08:24] LABS: CALCIUM, SERUM 7.7 mg/dL (8.5-10.1); CREATININE 0.6 mg/dL (0.6-1.3); PHOSPHORUS 3.9 mg/dL (2.5-4.9); POTASSIUM 3.2 mmol/L (3.5-5.1)
--- NOTE | 2022-12-19 09:00 | NUR ---
ms rn assisted for breakfast, due meds given,tolerated well.
[2022-12-19] MEDS: GABAPENTIN 100 MG CAPSULE PO SCH ×2 (10:18→17:00)
[2022-12-19] MEDS: PANTOPRAZOLE 40 MG VIAL IV SCH ×2 (10:18→20:47)
[2022-12-19] MEDS ORDERED: POTASSIUM CHLORIDE 20 MEQ TAB.PRT.SR PO SCH (10:30)
--- NOTE | 2022-12-19 11:30 | NUR ---
ms rn daughter called not to give gabapentin, not already taking it, will text md for order.
[2022-12-19] MEDS: MEROPENEM 500 MG in IV NS 0.9% 50 ML IV SCH ×2 (11:56→23:14)
[2022-12-19 15:26] LABS: BAND % (MANUAL) 3 % (0.0-5.0); EOSINOPHILS % (MANUAL) 5 % (0-4); LYMPHOCYTES % (MANUAL) 14 % (16-48); METAMYELOCYTES % 4 % (0-0); MONOCYTES % (MANUAL) 6 % (0-11.0); NEUTROPHILS % (MANUAL) 64 (42-76)
[2022-12-19 15:27] LABS: MYELOCYTES % 3 % (0-0)
--- NOTE | 2022-12-19 18:30 | NUR ---
ms rn on bed, all needs attended , no distress noted.
[2022-12-19] MEDS: IV NS 0.9% 1,000 ML IV PRN (18:43)
[2022-12-19 20:00] VITALS: BP 114/49
[2022-12-20] VITALS: BP 131/65
[2022-12-20 04:00] VITALS: BP 134/49
--- NOTE | 2022-12-20 05:01 | NUR ---
closing notes: In bed bed alarm community relations police lieutenant light within her reach afebrile thru the night SR on the tele monitor alok wrist restraints, off when nurse is in the room noted she will try to sit up in bed and get out over the rails she is confused , pleasant will follow simple instructions and quickly for forget what has been just told to her incontinent UA this 12 hours
[2022-12-20 05:48] LABS: EOSINOPHILS % (AUTO) 5.6 % (0.0-6.0); HEMATOCRIT 26 % (33-45); HEMOGLOBIN 8.8 g/dL (11.5-14.8); LYMPHOCYTES # (AUTO) 0.8 K/uL (0.8-4.8); LYMPHOCYTES % (AUTO) 17.8 % (20.0-44.0); MEAN CORPUSCULAR HGB CONC 33 g/dl (31.0-36.0); MEAN CORPUSCULAR VOLUME 93 fL (82-100); MONOCYTES # (AUTO) 0.3 K/uL (0.1-1.30); MONOCYTES % (AUTO) 7.2 % (2.0-12.0); NEUTROPHILS # (AUTO) 3.2 K/uL (1.8-8.9); NEUTROPHILS % (AUTO) 68.4 % (43.0-81.0); PLATELET COUNT (AUTO) 250 K/uL (150-450); RED BLOOD CELL COUNT(AUTO) 2.83 MIL/uL (4.0-5.2); WHITE BLOOD COUNT (AUTO) 4.6 K/uL (4.3-11.0)
[2022-12-20 06:00] LABS: CREATININE 0.6 mg/dL (0.6-1.3); POTASSIUM 3.5 mmol/L (3.5-5.1)
--- NOTE | 2022-12-20 07:15 | NUR ---
ms rn received on bed, awake,confuse, not in any form of distress, respirations even and unlabored,no sob noed, stable on room air w/ good saturations, bilateral soft wrist restrain, bilateral arms bruises noted, sacral reddish in color, repositioned for comfort, all needs attended.
--- NOTE | 2022-12-20 09:30 | NUR ---
ms henriquez breakfast served, due meds given,tolerated well.
[2022-12-20] MEDS: PANTOPRAZOLE 40 MG/PACK PACK NG SCH ×2 (09:34→18:06)
[2022-12-20] MEDS: MEROPENEM 500 MG in IV NS 0.9% 50 ML IV SCH ×2 (11:08→23:07)
--- NOTE | 2022-12-20 16:45 | NUR ---
PATIENT REQUIRES TRANSPORT WHEELCHAIR TO PERFORM FEEDING/GROOMING/TOILETING AND AVAILABLE CAREGIVER TO ASSIST WITH WHEELCHAIR.
--- NOTE | 2022-12-20 19:20 | NUR ---
noc rn opening received patient in bed with eyes closed, easy to arouse. no s/s of apparent distress on room air. not exhibiting any pain nor discomfort via flacc. patient on bila. soft wrsit restraints. RAC #20g on saline lock. Safety in place-- Bed in lowest locked position, Side rails up X4, bed alarm in place, will do hourly rounds to ensure patient safety. Will continue with patient's plan of care.
[2022-12-20 20:00] VITALS: BP 101/61
[2022-12-21 07:00] VITALS: BP_SYST 117; BP_SYST 68; BP_DIAS 117; BP_DIAS 68
--- NOTE | 2022-12-21 07:15 | NUR ---
MS RN OPENING NOTE PATIENT IS SLEEPING IN BED, AROUSABLE, AO X 1. SHE ONLY KNOWS HER NAME, PLEASANT AND SMILING. ON RA, TOLERATED WELL; NO S/S OF DISTRESS OR SOB. IV ACCESS IS AT NEGRA, #18G, ML, IV SITE IS PATENT AND INTACT. PT IS ON SOFT WRIST RESTRAINS BILATERAL, CHECKED THE CIRCULATION ON HER WRISTS, ARMS AND HANDS, WNL. SAFETY MEASURES ARE IN PLACE: BED IN LOWEST AND LOCKED POSITION; SIDE RAILS UP X 2; CALL LIGHT AND TABLE ARE WITHIN REACH. WILL CONTINUE TO MONITOR THE PATIENT
--- NOTE | 2022-12-21 07:26 | NUR ---
noc rn closing note needs attended. all scheduled medications administered. endorsed to HAYLIE Nance for continuity of care.
[2022-12-21] MEDS: PANTOPRAZOLE 40 MG/PACK PACK NG SCH ×2 (08:39→16:17)
[2022-12-21] MEDS: MEROPENEM 500 MG in IV NS 0.9% 50 ML IV SCH ×2 (11:14→22:31)
--- NOTE | 2022-12-21 15:40 | NUR ---
RELEASED SOFT RESTRAINT ON LEFT ARM. STILL OBSERVING PATIENT'S BEHAVIOR OF NOT PULLING HER IV.
[2022-12-21 16:51] VITALS: BP 113/41
--- NOTE | 2022-12-21 19:24 | NUR ---
MS RN CLOSING NOTE PATIENT IN BED, AWAKE, AO X 1. ON RA, TOLERATED WELL; NO S/S OF DISTRESS OR SOB. IV ACCESS AT NEGRA, #18G, ML, PATENT AND INTACT. PT IS ON SOFT WRIST RESTRAINT ONLY ON THE RIGHT ARM, ON REGULAR CHECKING OF WRIST, ARM AND HAND CIRCULATION, WNL. SAFETY MEASURES IN PLACED: BED IN LOWEST AND LOCKED POSITION; SIDE RAILS UP X 2; CALL LIGHT AND TABLE ARE WITHIN REACH. WILL ENDORSE TO ONCOMING FILTER CHANGING TECHNICIAN RN FOR ESPINOZA
[2022-12-21 20:00] VITALS: BP 124/57
--- NOTE | 2022-12-21 20:19 | NUR ---
RECEIVED PATIENT IN BED, ALERT/ORIENTED X1, STABLE ON ROOM AIR, NON VERBAL, NOT IN APPARENT DISTRESS, RIGHT ARM SOFT RESTRAINTS, BEING WEANED OFF. BEING CLOSELY MONITORED FOR BEHAVIOR. KEPT SAFE, WILL CONTINUE TO MONITOR.
--- NOTE | 2022-12-22 00:36 | NUR ---
PATIENT CONFUSED, PULLING IV LINE, RESTRAINTS RENEWED, WILL MONITOR IF PATIENT'S BEHAVIOR IS MET TO DISCONTINUE RESTRAINTS.
--- NOTE | 2022-12-22 05:45 | NUR ---
PATIENT IS ASLEEP, BILATERAL WRIST RESTRAINTS RELEASED FOR NOW. NO SKIN BREAKDOWN NOTED. ALERT AND CONFUSED, INCONTINENT, NO BLEEDING DURING SHIFT, MERREM FOR UTI. WITH DISCHARGE ORDER, DAUGHTER DID NOT APPROVE OF SNF CHOSEN FOR PATIENT. AWAITING SNF PLACEMENT
[2022-12-22 07:00] VITALS: BP 108/60
--- NOTE | 2022-12-22 07:23 | NUR ---
RN OPENING NOTE RECEIVED PATIENT IN BED, AWAKE, CONFUSED. TRYING TO GET OOB. REALITY ORIENTATION PROVIDED. ON ROOM AIR, BREATHING EVEN AND UNLABORED. DENIES ANY PAIN OR DISCOMFORT. NOTED WITH MIDLINE ON LEFT UPPER ARM, INTACT AND PATENT, SALINE LOCKED. SAFETY MEASURE IN PLACE. BILATERAL SOFT WRIST RESTRAINTS IN PLACE. BED IN LOW AND LOCKED POSITION, SIDE RAILS UP X2, CALL LIGHT PLACED WITHIN EASY REACH. WILL CONTINUE TO MONITOR PATIENT.
[2022-12-22] MEDS: PANTOPRAZOLE 40 MG/PACK PACK NG SCH ×2 (08:06→16:33)
[2022-12-22] MEDS: MEROPENEM 500 MG in IV NS 0.9% 50 ML IV SCH ×2 (11:05→23:29)
[2022-12-22] MEDS: ENSURE ENLIVE 237 ML LIQUID (VANILLA) PO SCH ×2 (12:23→17:07)
[2022-12-22 16:00] VITALS: BP 116/63
--- NOTE | 2022-12-22 18:40 | NUR ---
RN CLOSING NOTE PATIENT IN BED, AWAKE, CONFUSED. REALITY ORIENTATION PROVIDED. REMAINS STABLE ON ROOM AIR, BREATHING EVEN AND UNLABORED. NO S/SX OF PAIN OR DISCOMFORT. WITH MIDLINE ON LEFT UPPER ARM, INTACT AND PATENT, SALINE LOCKED. SAFETY MEASURE MAINTAINED. BILATERAL SOFT WRIST RESTRAINTS IN PLACE. BED IN LOW AND LOCKED POSITION, SIDE RAILS UP X2, CALL LIGHT PLACED WITHIN EASY REACH. WILL ENDORSE TO NEXT SHIFT FOR CONTINUITY OF CARE.
--- NOTE | 2022-12-22 19:26 | NUR ---
MS YEVGENIY INITIAL NOTES Received report from am nurse and seen patient in bed resting with eyes closed but aroused easily. Respiration even and non-labored, with soft restraint on both wrist ,pulse present and skin warm to touch. Kept her warm and comfortable at all times. Bed in low and lock in position with side rails x2 up . place call light at reach. will continue monitor.
[2022-12-22 20:00] VITALS: BP 119/65
--- NOTE | 2022-12-23 | NUR ---
ms divine notes seen patient awake and saying that "where is that sounds coming . I explained to her that the c-pap machine, confusion noted , applied earplug to lessen the noise that she heard . reposition her for comfort. Merrem IVP bag was done , no adverse reaction noted. Kept her warm and comfortable . will continue monitoring.
[2022-12-23 06:55] LABS: BASOPHILS % (AUTO) 0.8 % (0.0-2.0); EOSINOPHILS % (AUTO) 2.9 % (0.0-6.0); HEMATOCRIT 29 % (33-45); HEMOGLOBIN 9.1 g/dL (11.5-14.8); LYMPHOCYTES # (AUTO) 0.8 K/uL (0.8-4.8); LYMPHOCYTES % (AUTO) 21.6 % (20.0-44.0); MEAN CORPUSCULAR HGB CONC 32 g/dl (31.0-36.0); MEAN CORPUSCULAR VOLUME 94 fL (82-100); MONOCYTES # (AUTO) 0.3 K/uL (0.1-1.30); MONOCYTES % (AUTO) 8.8 % (2.0-12.0); NEUTROPHILS # (AUTO) 2.5 K/uL (1.8-8.9); NEUTROPHILS % (AUTO) 65.9 % (43.0-81.0); PLATELET COUNT (AUTO) 288 K/uL (150-450); RED BLOOD CELL COUNT(AUTO) 3.05 MIL/uL (4.0-5.2); WHITE BLOOD COUNT (AUTO) 3.8 K/uL (4.3-11.0)
[2022-12-23 07:08] LABS: CREATININE 0.6 mg/dL (0.6-1.3); POTASSIUM 3.6 mmol/L (3.5-5.1)
--- NOTE | 2022-12-23 07:30 | NUR ---
MS WASTE COLLECTION DRIVER CLOSING NOTES PT RESTING AT THIS TIME AFTER MORNING CARE DONE. STABLE THROUGHOUT THE NIGHT, NO SIGNS OF ANY ACUTE DISTRESS OR ANY DISCOMFORT NOTED. PT CALMED AT THIS TIME,. LEFT WRIST RESTRAINT OFF AT THIS TIME. KEPT HER WARM AND COMFORTABLE AT ALL TIMES. BED IN LOW AND LOCK IN POSITION WITH SIDE RAILS X3 UIP. BED ALARM SET FOR SAFETY. WILL ENDORSE TO AM NURSE FOR CONTINUITY OF CARE.
--- NOTE | 2022-12-23 07:30 | NUR ---
PT RECEIVED RESTING COMFORTABLY IN BED. NO S/S OR C/O PAIN OR DISTRESS NOTED. SIDE RAILS UP X2, CALL LIGHT LEFT WITHIN REACH. WILL CONTINUE PLAN OF CARE.
[2022-12-23 08:10] VITALS: BP 118/64
[2022-12-23] MEDS: MEROPENEM 500 MG in IV NS 0.9% 50 ML IV SCH ×2 (08:54→23:30)
[2022-12-23] MEDS: PANTOPRAZOLE 40 MG/PACK PACK PO SCH ×2 (08:54→17:26)
[2022-12-23] MEDS: ENSURE ENLIVE 237 ML LIQUID (VANILLA) PO SCH ×3 (08:55→17:26)
[2022-12-23 10:00] VITALS: BP 118/64
[2022-12-23 15:59] VITALS: BP 110/58
--- NOTE | 2022-12-23 18:25 | NUR ---
CHANGE OF SHIFT REPORT PT RESTING COMFORTABLY IN BED. NO S/S OR C/O PAIN OR DISTRESS NOTED. SIDE RAILS UP X2, CALL LIGHT LEFT WITHIN REACH. PT KEPT CLEAN, DRY, AND COMFORTABLE. NO SIGNIFICANT CHANGES SINCE PREVIOUS SHIFT. WILL GIVE REPORT TO JUJU STALLINGS.
--- NOTE | 2022-12-23 19:50 | NUR ---
MS RN OPENING NOTES RECEIVED PATIENT IN BED AWAKE AND ALERT WITH EPISODES OF CONFUSION. ON ROOM AIR, BREATHING EVEN AND UNLABORED, NO SOB OR DISTRESS NOTED AT THIS TIME. NO C/O OF ANY PAIN OR DISCOMFORT. IV ACCESS NEGRA MIDLINE, INTACT AND PATENT, SALINE LOCKED. SAFETY MEASURE IN PLACE WITH IN LOWEST AND LOCKED POSITION. SIDE RAILS UP X2. CALL LIGHT PLACED WITHIN EASY REACH. WILL CONTINUE TO MONITOR PATIENT.
[2022-12-23 20:00] VITALS: BP 106/51
[2022-12-24 03:35] VITALS: BP 106/51
[2022-12-24 06:10] LABS: BASOPHILS % (AUTO) 0.7 % (0.0-2.0); EOSINOPHILS % (AUTO) 1.7 % (0.0-6.0); HEMATOCRIT 27 % (33-45); HEMOGLOBIN 8.7 g/dL (11.5-14.8); LYMPHOCYTES % (AUTO) 20.8 % (20.0-44.0); MEAN CORPUSCULAR HGB CONC 33 g/dl (31.0-36.0); MEAN CORPUSCULAR VOLUME 92 fL (82-100); MONOCYTES # (AUTO) 0.4 K/uL (0.1-1.30); MONOCYTES % (AUTO) 8.2 % (2.0-12.0); NEUTROPHILS # (AUTO) 3.1 K/uL (1.8-8.9); NEUTROPHILS % (AUTO) 68.6 % (43.0-81.0); PLATELET COUNT (AUTO) 282 K/uL (150-450); RED BLOOD CELL COUNT(AUTO) 2.91 MIL/uL (4.0-5.2); WHITE BLOOD COUNT (AUTO) 4.6 K/uL (4.3-11.0)
[2022-12-24 06:17] LABS: CARBON DIOXIDE 28 mmol/L (21-32); CHLORIDE 108 mmol/L (98-107); CREATININE 0.6 mg/dL (0.6-1.3); GLUCOSE 103 mg/dL (74-106); MAGNESIUM 2.1 mg/dL (1.8-2.4); PHOSPHORUS 3.5 mg/dL (2.5-4.9); SODIUM SERUM 140 mmol/L (136-145); UREA NITROGEN, BLOOD 14 mg/dL (7-18)
--- NOTE | 2022-12-24 07:40 | NUR ---
MS RN OPENING NOTES RECEIVED PATIENT IN BED AWAKE AND ALERT WITH EPISODES OF CONFUSION. ON ROOM AIR, NO SOB OR DISTRESS NOTED AT THIS TIME. NO C/O OF ANY PAIN OR DISCOMFORT. IV ACCESS NEGRA MIDLINE, INTACT AND PATENT, SALINE LOCKED. SAFETY MEASURE IN PLACE WITH IN LOWEST AND LOCKED POSITION. SIDE RAILS UP X2. CALL LIGHT PLACED WITHIN EASY REACH. WILL CONTINUE TO MONITOR PATIENT.
[2022-12-24 08:00] VITALS: BP 106/58
[2022-12-24] MEDS: PANTOPRAZOLE 40 MG/PACK PACK PO SCH ×2 (08:42→17:01)
[2022-12-24] MEDS: ENSURE ENLIVE 237 ML LIQUID (VANILLA) PO SCH ×3 (08:42→17:00)
[2022-12-24] MEDS: MEROPENEM 500 MG in IV NS 0.9% 50 ML IV SCH (12:22)
[2022-12-24 15:53] VITALS: BP 105/67
--- NOTE | 2022-12-24 19:23 | NUR ---
TOP DISTRIBUTION EXECUTIVE NOTES PATIENT IS WITH ORDER FOR DISCHARGE TO [facility] FOR THE [facility]EE[facility]-MINDED , ALL DISCHARGE PAPERS PREPARED AND DISCHARGE INSTRUCTIONS WERE GIVEN TO LICENSE NURSE LORI AND PATIENT WAS PICKED UP VIA AMBULANCE , PATIENT IS GOING TO [facility] , ID BAND REMOVED AND IV ACCESS REMOVED . PATIENT IN A STABLE CONDITION AND ALL NEEDS ATTENDED . PICKED AROUND [id number] AND REPORT WAS ALSO GIVEN TO AMBULANCE CREW .
== END 2022-12-24 19:23 | DRG 871 ==
LOC: ER 15:40 → MED 22:36 → TELE 23:34 → ICU 12-15 19:42 → TELE 12-18 13:52 → MED 12-20 19:51
PROVIDERS: ADMIT Nurse Practitioner Acute Care; ATTEND Nurse Practitioner Acute Care
PROC: 30233N1 Transfusion of Nonautologous Red Blood Cells into Peripheral Vein, Percutaneous Approach (ICD-10-PCS; principal; 2022-12-14)
PROC: 0W3P8ZZ Control Bleeding in Gastrointestinal Tract, Via Natural or Artificial Opening Endoscopic (ICD-10-PCS; 2022-12-16)
PROC: 0DB68ZX Excision of Stomach, Via Natural or Artificial Opening Endoscopic, Diagnostic (ICD-10-PCS; 2022-12-16)
DX: A41.9 Sepsis, unspecified organism (principal); G93.41 Metabolic encephalopathy; K26.4 Chronic or unspecified duodenal ulcer with hemorrhage; K29.71 Gastritis, unspecified, with bleeding; R65.21 Severe sepsis with septic shock; E44.0 Moderate protein-calorie malnutrition; N39.0 Urinary tract infection, site not specified; Z16.24 Resistance to multiple antibiotics; Z66 Do not resuscitate; Z20.822 Contact with and (suspected) exposure to COVID-19; G30.9 Alzheimer's disease, unspecified; F02.80 Dementia in other diseases classified elsewhere, unspecified severity, without behavioral disturbance, psychotic disturbance, mood disturbance, and anxiety; K57.30 Diverticulosis of large intestine without perforation or abscess without bleeding; Z87.440 Personal history of urinary (tract) infections; M81.0 Age-related osteoporosis without current pathological fracture; M41.9 Scoliosis, unspecified; Z96.652 Presence of left artificial knee joint; Z96.641 Presence of right artificial hip joint; M19.90 Unspecified osteoarthritis, unspecified site; K42.9 Umbilical hernia without obstruction or gangrene; D64.9 Anemia, unspecified; E87.6 Hypokalemia; E83.42 Hypomagnesemia; B96.1 Klebsiella pneumoniae [K. pneumoniae] as the cause of diseases classified elsewhere; B96.20 Unspecified Escherichia coli [E. coli] as the cause of diseases classified elsewhere; E83.39 Other disorders of phosphorus metabolism; E86.1 Hypovolemia; I70.0 Atherosclerosis of aorta; K76.89 Other specified diseases of liver; N28.1 Cyst of kidney, acquired; Z79.899 Other long term (current) drug therapy; Z79.83 Long term (current) use of bisphosphonates; G89.29 Other chronic pain
CPT/HCPCS: 36415; 36600; 71045-TC; 76700-TC; 80048-TC; 80053-TC; 80076-TC; 81001; 82272-TC; 82728-TC; 82962-TC; 83540-TC; 83605-TC; 83735-TC; 84100-TC; 84443-TC; 84484-TC; 85025-TC; 85027-TC; 85610-TC; 85730-TC; 86850-TC; 87081-TC; 87086-TC; 88305-TC; 88313-TC; 88342; 93307-TC; 97112-TC; 97116-TC; 97530-TC; A4223; A9560; C9113; C9803; G0378; J0696; J2185; J2405; J2704; J2765; J3475; J3480; J3490; J7030; J7040; J7050; J7060; P9016; Q9967